=== PATIENT | female | born 1960 | race African-American/Black ===

== ENCOUNTER 2020-10-30 11:52 | Outpatient (RCR) | payer MEDICARE, MEDICAID, SELFPAY ==
[2020-10-30 12:29] VITALS: PULSE 77
--- NOTE | 2020-11-01 13:56 | PCCPR ---
Addendum entered by Mary Ruiz RN 11/06/20 10:36: Spoke with Mary states she was dc'd from the hospital on Friday. States she fell while there and is very sore from the fall. States it was recommended she look for a place in [facility] to help her get up and around safely and easily. Original Note: Patient called to inform department that she was admitted to the hospital on 10/31/20 for a DVT in her leg. Patient stated she'll call when she's been discharged. Patient was also informed that she'll need a release form from her doctor before she returns to rehab. Patient verbalized understanding.
--- NOTE | 2020-11-08 16:42 | PCCPR ---
Addendum entered by Mary Ruiz RN 11/24/20 10:02: Called to check on Mary her phone rang several times unable to leave message. Addendum entered by Mary Ruiz RN 11/08/20 16:44: Spoke with Mary and she is now receiving home health rehab for now. She has a follow up apt with her PCP on Friday. Asked she keep us informed and discussed for the time being to be placed on hold until she has a target day and release to return. Original Note: 11/06/20 Absent due to blood clot in her leg Spoke with Mary she was released from the hospital over weekend however having leg pain so heading back to ER to look into pain management.
== END 2020-11-29 10:05 | disposition home or self-care (01) ==
LOC: ANHCPREHAB 11:52
PROVIDERS: Visit Provider Internal Medicine Cardiovascular Disease
DX: Z95.5 Presence of coronary angioplasty implant and graft (principal)
CPT/HCPCS: 93798